=== PATIENT | male | born 1955 ===

== ENCOUNTER 2017-01-17 06:24 | Day surgery (SDC) | payer MEDICARE ==
[2017-01-17 07:23] VITALS: BMI 32.1
[2017-01-17 07:49] LABS: BASO # 0.1 K/uL (0.0-0.2); BASO % 1.1 % (0.0-2.0); EOS # 0.1 K/uL (0.0-0.7); EOS % 1.1 % (0.0-4.0); HEMATOCRIT 35.2 % (35.0-51.0); LYMPH # 1.6 K/uL (1.0-4.3); LYMPH % 14.6 % (20.0-40.0); MEAN CELL VOLUME 85.7 fL (80.0-94.0); MEAN CORPUSCULAR HEMOGLOBIN 29.8 pg (27.0-31.0); MEAN CORPUSCULAR HGB CONC 34.8 g/dL (33.0-37.0); MEAN PLATELET VOLUME 8.3 fL (7.2-11.7); MONO # 0.9 K/uL (0.0-0.8); MONO % 8.2 % (0.0-10.0); RED CELL DISTRIBUTION WIDTH 13.7 % (11.5-14.5); WHITE BLOOD COUNT 11.1 K/uL (4.8-10.8)
[2017-01-17 08:09] LABS: CHLORIDE 100 mmol/L (98-107); POTASSIUM 4.1 mmol/L (3.6-5.2); SODIUM 136 mmol/L (132-148)
[2017-01-17 08:12] LABS: CARBON DIOXIDE 23 mmol/L (22-30); GFR AFRICAN-AMERICAN > 60
[2017-01-17 08:13] LABS: BLOOD UREA NITROGEN 19 mg/dL (9-20); CALCIUM 8.9 mg/dl (8.6-10.4); GLUCOSE,RANDOM 204 mg/dL (75-110)
[2017-01-17] MEDS ORDERED: Iodixanol 320 MG/ML 200 ML BOTTLE IV ONE (10:34)
[2017-01-17] MEDS ORDERED: Iodixanol 320 MG/ML 100 ML BOTTLE IV ONE ×3 (10:34→11:44)
[2017-01-17] MEDS ORDERED: Nitroglycerin 50mg in D5W 50 MG/250 ML BOTTLE IV ONE (11:13)
[2017-01-17] MEDS ORDERED: Sodium Chloride 0.9% 1,000 ML IV SCH (13:15)
[2017-01-17] MEDS ORDERED: Sodium Chloride 0.9% 1,000 ML IV ONE (14:00)
[2017-01-17 15:38] VITALS: TEMP 98.2; O2SAT 97
[2017-01-17 17:48] VITALS: BP 156/73; PULSE 76; RESP 20
--- NOTE | 2017-01-18 12:46 | VAS ---
DATE: 01/17/2017 INDICATIONS: Mr. Sarbjit Koenig is a 62-year-old male with past medical history significant for hypertension, diabetes, hyperlipidemia, CAD, who was referred to [facility] for evaluation of nonhealing ulcer of the left interdigital space. The patient had ulcer ongoing for 6 months with poor wound healing and therefore he was brought to the civil laboratory technician for evaluation and treatment of peripheral vascular occlusive disease. PROCEDURE PERFORMED: 1. Distal abdominal aortogram with bilateral iliac runoff. 2. Bilateral iliofemoral angiogram with runoff. 3. POWER ENGINEER stenting of left ostial SFA with use of 7.0 x 19 balloon expandable stent, lesion reduction from 70% down to 0%. Resolution of translesion gradient from 70 mmHg down to less than 10 mmHg. POWER ENGINEER atherectomy of left anterior tibial artery with the use of 1.25 CSI atherectomy device, addition balloon angioplasty with a 2.5-8.0 balloon, lesion reduction from 100% down to less than 10% and MARIO-3 flow. A 6-Norwegian right femoral arterial access, Mynx closure device for hemostasis. TECHNIQUES OF PROCEDURE: After obtaining informed consent, the patient was brought to the cardiac catheterization in post-absorptive, non-sedated state. The patient was prepped and draped in the usual sterile fashion. A 2% lidocaine was used for infiltration anesthesia. Using modified Seldinger technique, 6-Norwegian sheath was introduced into right femoral artery and right iliofemoral angiogram with runoff was performed and digital subtraction angiographic views of [id number] of the right foot profile was obtained. Angiographic findings of the right lower extremities, right common iliac and external iliac are patent. Common femoral artery patent. SFA proximal mild luminal irregularities, mid SFA stent patent with a dissection noted with the distal edge of the stent, popliteal patent with mild disease, anterior tibial artery patent, two vessel runoff [id number] of anterior tibial artery and peroneal. POWER ENGINEER 100% occluded distally. Subsequently after doing the right lower extremity angiogram over a Glidewire, a Omni Flush catheter was advanced into the abdominal aorta. Abdominal aortogram bilateral iliac runoff was performed. Subsequently, the catheter was advanced across the aortoiliac bifurcation to the left common femoral artery. Digital subtraction angiographic views of the left SFA, left popliteal, left [id number], and a left foot profile was obtained. Angiographic findings of the left lower extremities. Left common iliac and external iliac artery are patent, internal iliac moderately diseased, common femoral artery patent, SFA ostial 80% stenosis, profunda femoris' ostial 70% stenosis with a 70 mm pressure gradient across the lesion. Mid SFA stent is patent, popliteal artery patent, peroneal patent, anterior tibial artery proximal 100%, chronic total occlusion peroneal feet via collaterals anterior communicating branch to the anterior tibial at the ankle, dorsalis pedis feeds the superficial plantar arch, which reconstitutes the distal arch feeding the interdigital spaces. TECHNIQUES OF INTERVENTION: After reviewing the above angiographic findings, it was deemed imperative to further interrogate the ostial SFA lesion, gradients were noted across the lesion. At this point, an attempt was made to cross the right anterior tibial arteries HEAD WAITER/WAITRESS with 0.018 CXI catheter with an 0.018 GlideWire Advantage. The lesions were successfully negotiated through this very technique up to the distal end of the anterior tibial artery. At this point, the lesion was pretreated with 1.25 CSI atherectomy device and addition balloon angioplasty was done. angiogram showed lesion reduction down to 0% with a good MARIO-3 flow in all the angiosomes of the foot. At this point, the SFA ostial lesion was reinterrogated and it was ballooned with the Angioscore AngioSculpt balloon. There was a residual drop therefore the profunda femoris was predilated and SFA was stented with the use of 7.0 x 19 mm balloon expandable stent with lesion reduction down to 0% and MARIO-3 flow. IMPRESSION: Successful percutaneous transluminal angioplasty stenting of the left ostial superficial femoral artery with use of 7.0 x 19 mm balloon expandable stent. Successful percutaneous transluminal angioplasty atherectomy of the left anterior tibial artery with a use of 1.25 CSI atherectomy device and addition balloon angioplasty. RECOMMENDATIONS: Keep the patient on dual antiplatelet therapy, keep the patient on beta blockers, DALJIT inhibitors, statins, guideline-directed medical therapy for peripheral vascular occlusive disease. Thank you Dr. Munoz for letting me to participate in the care of your patient. The patient will follow with Dr. Munoz in the podiatry office for his wound care and with Dr. Bain at [address] [place] [address]. David Bain MD [facility] # [id number]
== END 2017-01-17 18:03 | disposition home or self-care (01) ==
LOC: C.CATHLAB 06:24
PROVIDERS: ATTEND Internal Medicine Interventional Cardiology
DX: I77.1 Stricture of artery (principal); I10 Essential (primary) hypertension; E11.9 Type 2 diabetes mellitus without complications; Z79.4 Long term (current) use of insulin
CPT/HCPCS: 36247; 36415; 37226; 75625; 75716; 75774; 80048; 85025; 85610; 85730; 94770; C1725; C1760; C1769; C1887; C1894; J1644; J7040; Q9967

== ENCOUNTER → 2017-04-12 | Day surgery (SDC) | payer OTHER ==
[~2017-04-12] MED LIST: HYDROmorphone 1 mg/ml ISec ONE; Iodixanol 320 MG/ML 100 ML BOTTLE IV ONE; Midazolam 2 MG/2 ML VIAL ONE; Sodium Chloride 0.9% 500 ML IV SCH
[2017-04-12 10:41] VITALS: BMI 32.7
--- NOTE | 2017-04-12 23:22 | CARDCATH ---
PROCEDURE DATE: 04/12/2017 INDICATIONS: Mr. Sarbjit Koenig is a 62-year-old male, with past medical history significant for hypertension, dyslipidemia, CAD, peripheral vascular occlusive disease, who was admitted to [facility] with a gangrene of the left great toe. The patient was diagnosed with osteomyelitis of the foot and was brought back for possible intervention and evaluation of vascular status. PROCEDURE PERFORMED: Distal abdominal aortogram, bilateral iliac runoff, selective bilateral iliofemoral angiogram with runoff, 5-Wallisian right femoral arterial access, manual pressure for hemostasis. TECHNIQUES OF PROCEDURE: After obtaining informed consent, patient was brought to the cardiac cath suite in post-absorptive and non-sedated state. The patient was prepped and draped in the usual sterile fashion. Lidocaine 2% was used for infiltration of anesthesia. Using modified Seldinger technique, a 5-Wallisian sheath was introduced into the right femoral artery and right iliofemoral angiogram with runoff was performed using digital subtraction angiographic views. Subsequently, over a soft guidewire, a Contra catheter was advanced into abdominal aorta. Abdominal aortogram with bilateral iliac runoff was performed. Subsequently, the Contra was advanced across the aortoiliac bifurcation to the left common femoral artery. Digital subtraction angiographic views of the left SFA, left popliteal, left below the knee, and the left foot profile was obtained. Angiographic findings of the right lower extremity: Right common iliac and external iliac patent. Right SFA has a mid 70% stenosis, distal 60% stenosis with 2-vessel runoff below the knee. Left lower extremity: Left common iliac and external iliac patent. Left common femoral artery has proximal stent, patent with profunda femoris has ostial 80% stenosis, MARIO-3 flow with pullback gradient across the stent. Mid SFA has long segment stent which is patent with MARIO-3 flow. Popliteal artery is patent. Anterior tibial artery has proximal 50% stenosis. Good distal flow, peroneal patent, posterior tibial was totally occluded. Superficial plantar arch fed by the dorsalis pedis artery, which has proximal 50% stenosis. All the 6 angiosomes of the foot have good flow with good tissue ____. IMPRESSION: Patent stents with good angiosomes on all the 6 angiosomes of the foot. RECOMMENDATIONS: Aggressive medical management and risk factor modification. Patient can . David Bain MD [facility] # [id number]
[2017-04-13 11:37] VITALS: RESP 20; O2SAT 98
== END | disposition home or self-care (01) ==
LOC: C.CATHLAB 10:27
PROVIDERS: ATTEND Internal Medicine Interventional Cardiology
DX: I25.10 Atherosclerotic heart disease of native coronary artery without angina pectoris (principal); I10 Essential (primary) hypertension; E78.5 Hyperlipidemia, unspecified; M86.8X7 Other osteomyelitis, ankle and foot
CPT/HCPCS: 36247; 75625; 75716; 75774; 94770; C1766; C1769; J0360; J1170; J1644; J2250; J3010; J7040; Q9967

== ENCOUNTER 2017-08-17 06:23 | Day surgery (SDC) | payer MEDICARE ==
[2017-08-14 10:25] VITALS: BMI 34.4
[~2017-08-17 06:23] MED LIST changes: -HYDROmorphone 1 mg/ml ISec ONE; -Iodixanol 320 MG/ML 100 ML BOTTLE IV ONE; +Lactated Ringer's 500 ML IV ONE; -Midazolam 2 MG/2 ML VIAL ONE; +Phenylephrine 2.5% Opht Soln OD SCH; -Sodium Chloride 0.9% 500 ML IV SCH; +Tropicamide 1% Opht SOLUTION OD SCH
[2017-08-17] MEDS ORDERED: Lactated Ringer's 500 ML IV ONE ×2 (06:52)
[2017-08-17] MEDS ORDERED: Povidone Iodine Ophthalmic 5% Soln ONE (07:25)
[2017-08-17] MEDS ORDERED: Lidocaine 2% Inj (20ml) INFIL ONE (07:25)
[2017-08-17] MEDS ORDERED: Carbachol 0.01% IO ONE (07:25)
[2017-08-17] MEDS ORDERED: Tobramycin/Dexamethasone OPHT OINT ONE (07:26)
[2017-08-17] MEDS ORDERED: Tetracaine 0.5% Ophth (OR ONLY) ONE (07:26)
[2017-08-17] MEDS ORDERED: Chondroitin/Hyaluronate Opth Syringe KIT (0.55 ml-0.5 ml) IO ONE (07:26)
[2017-08-17] MEDS ORDERED: Hyaluronidase Human, Recombi 150 U/ML VIAL ONE (07:27)
[2017-08-17] MEDS ORDERED: Propofol 10 mg/ml Inj (20 ML) ONE (08:22)
[2017-08-17 11:23] VITALS: TEMP 97.7; O2SAT 99
[2017-08-17 11:31] VITALS: BP 131/60; PULSE 71; RESP 18
--- NOTE | 2017-08-17 14:19 | OP ---
PROCEDURE DATE: 08/17/2017 PREOPERATIVE DIAGNOSIS: Hypermature cataract, right eye. POSTOPERATIVE DIAGNOSIS: Hypermature cataract, right eye. OPERATIVE PROCEDURE: Cataract extraction with lens implant for complex cataract, right eye, using VisionBlue for hypermaturity. ATTENDING: Stephen Charles MD ANESTHESIA: Retrobulbar block. ESTIMATED BLOOD LOSS: Zero. COMPLICATIONS: None. PROCEDURE: The patient was brought to the operating room and properly identified. Anesthesia staff administered intravenous sedation and retrobulbar block was given to the surgical eye. The patient was then prepped and draped in the usual sterile fashion. Attention was turned to the surgical eye. A lid speculum was placed into interpalpebral fissure. Sitting temporally, two paracentesis incisions were made. The anterior chamber was filled with viscoelastic and a triplanar clear corneal incision was made. Using a cystitome, anterior capsular leaflet was created. Utrata forceps were used to create a continuous curvilinear capsulorrhexis. Balanced salt solution on a cannula was used to hydrodissect and hydrodelineate the lens. The lens was then phacoemulsified with no complications. Automated irrigation and aspiration was used to remove the cortex. Viscoelastic was used to deepen the anterior chamber. The lens was placed in the capsular bag. Automated irrigation and aspiration was used to remove the viscoelastic. The anterior chamber was filled with Miochol. The wounds were hydrated with balanced salt solution. There was noted to be no leak at the end of the case and the lens was well positioned. The lid speculum was removed. The eye was given antibiotics and steroids and covered with a patch and shield. The patient was returned to the recovery room in stable condition. ADDENDUM: Due to hypermaturity of the cataract, VisionBlue was used to highlight the anterior capsule to create a continuous curvilinear capsulorrhexis. Stephen Charles MD
== END 2017-08-17 11:23 | disposition home or self-care (01) ==
LOC: C.SDS 06:23
PROVIDERS: ATTEND Ophthalmology
DX: H25.21 Age-related cataract, morgagnian type, right eye (principal); Z79.891 Long term (current) use of opiate analgesic; Z79.4 Long term (current) use of insulin; Z79.02 Long term (current) use of antithrombotics/antiplatelets; Z79.82 Long term (current) use of aspirin; I25.10 Atherosclerotic heart disease of native coronary artery without angina pectoris; E11.9 Type 2 diabetes mellitus without complications; I11.0 Hypertensive heart disease with heart failure; I50.9 Heart failure, unspecified; I45.10 Unspecified right bundle-branch block; Z95.5 Presence of coronary angioplasty implant and graft; E78.00 Pure hypercholesterolemia, unspecified
CPT/HCPCS: 66982; 82948; J2704; J3010; J3470; J7120; V2632

== ENCOUNTER → 2017-09-14 | Day surgery (SDC) | payer MEDICARE ==
[2017-08-14 10:25] VITALS: BMI 34.4
[~2017-09-14] MED LIST changes: +Carbachol 0.01% IO ONE; +Chondroitin/Hyaluronate Opth Syringe KIT (0.55 ml-0.5 ml) IO ONE; +Hyaluronidase Human, Recombi 150 U/ML VIAL ONE; +Lidocaine 2% MPF (5 ml) Inj ONE; +Midazolam 2 MG/2 ML VIAL ONE; -Phenylephrine 2.5% Opht Soln OD SCH; +Phenylephrine 2.5% Opht Soln OS SCH; +Povidone Iodine Ophthalmic 5% Soln ONE; +Tobramycin/Dexamethasone OPHT OINT ONE; -Tropicamide 1% Opht SOLUTION OD SCH; +Tropicamide 1% Opht SOLUTION OS SCH
[2017-09-14 07:41] VITALS: O2SAT 97
[2017-09-14 11:25] VITALS: RESP 15
[2017-09-14 11:49] VITALS: BP 117/56; PULSE 63; TEMP 97.7
--- NOTE | 2017-09-15 02:47 | OP ---
PROCEDURE DATE: 09/14/2017 PREOPERATIVE DIAGNOSIS: Mature nuclear cataract, left eye. POSTOPERATIVE DIAGNOSIS: Mature nuclear cataract, left eye. OPERATIVE PROCEDURE: Cataract extraction with lens implant, left eye. SURGEON: Stephen Charles MD TYPE OF ANESTHESIA: Retrobulbar block. COMPLICATIONS: None. ESTIMATED BLOOD LOSS: Zero. DESCRIPTION OF PROCEDURE: The patient was brought to the operating room and properly identified. Anesthesia staff administered intravenous sedation and retrobulbar block was given to the surgical eye. The patient was then prepped and draped in the usual sterile fashion. Attention was turned to the surgical eye. A lid speculum was placed into interpalpebral fissure. Sitting temporally, two paracentesis incisions were made. The anterior chamber was filled with viscoelastic and a triplanar clear corneal incision was made. Using a cystitome, anterior capsular leaflet was created. Utrata forceps were used to create a continuous curvilinear capsulorrhexis. Balanced salt solution on a cannula was used to hydrodissect and hydrodelineate the lens. The lens was then phacoemulsified with no complications. Automated irrigation and aspiration was used to remove the cortex. Viscoelastic was used to deepen the anterior chamber. The lens was placed in the capsular bag. Automated irrigation and aspiration was used to remove the viscoelastic. The anterior chamber was filled with Miochol. The wounds were hydrated with balanced salt solution. There was noted to be no leak at the end of the case and the lens was well positioned. The lid speculum was removed. The eye was given antibiotics and steroids and covered with a patch and shield. The patient was returned to the recovery room in stable condition. Stephen Charles MD
== END | disposition home or self-care (01) ==
LOC: C.SDS 06:33
PROVIDERS: ATTEND Ophthalmology
DX: H25.12 Age-related nuclear cataract, left eye (principal); I10 Essential (primary) hypertension; E11.9 Type 2 diabetes mellitus without complications
CPT/HCPCS: 66984; 82948; J2250; J3010; J3470; J7120; V2632